=== PATIENT | male | born 1985 | race Caucasian/White ===

== ENCOUNTER 2018-10-08 14:01 | Emergency (ER) | payer SELFPAY ==
[2018-10-08 14:20] VITALS: BP 131/80; PULSE 68; TEMP 98.4; BMI 31.8
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
== END 2018-10-08 15:45 | disposition home or self-care (01) ==
LOC: JERFT 14:01
DX: S39.012A Strain of muscle, fascia and tendon of lower back, initial encounter (principal); S89.82XA Other specified injuries of left lower leg, initial encounter; V59.49XA Driver of pick-up truck or van injured in collision with other motor vehicles in traffic accident, initial encounter; Y92.411 Interstate highway as the place of occurrence of the external cause; Y93.89 Activity, other specified; Y99.8 Other external cause status
CPT/HCPCS: 73562-TC-LT-FY; 99281-25

== ENCOUNTER 2022-04-17 19:21 | Emergency (ER) | payer OTHER ==
[2022-04-17 19:28] VITALS: BP 129/73; PULSE 68; RESP 17; TEMP 98.6; BMI 32.5
[2022-04-17] MEDS ORDERED: LIDOCAINE 5% TOPICAL PATCH TP ONE (20:57)
[2022-04-17] MEDS ORDERED: CYCLOBENZAPRINE HCL 10 MG TABLET (FP) PO ONE (20:57)
[2022-04-17] MEDS ORDERED: KETOROLAC TROMETHAMINE 30 MG/1 ML VIAL IM ONE (20:57)
[2022-04-17] MEDS ORDERED: ACETAMINOPHEN 500 MG TABLET (FP) PO ONE (20:57)
[2022-04-17] MEDS ORDERED: LIDOCAINE 5% TOPICAL PATCH ONE (21:00)
[2022-04-17] MEDS ORDERED: KETOROLAC TROMETHAMINE 30 MG/1 ML VIAL ONE (21:00)
[2022-04-17] MEDS ORDERED: ACETAMINOPHEN 500 MG TABLET (FP) ONE (21:00)
[2022-04-17] MEDS ORDERED: CYCLOBENZAPRINE HCL 10 MG TABLET (FP) ONE (21:00)
[2022-04-17] MEDS ORDERED: LIDOCAINE PATCH REMOVAL MC SCH (22:00)
== END 2022-04-17 21:43 | disposition home or self-care (01) ==
LOC: JERFT 19:21
PROC: 3E0233Z Introduction of Anti-inflammatory into Muscle, Percutaneous Approach (ICD-10-PCS; principal; 2022-04-17)
DX: M54.2 Cervicalgia (principal); M54.6 Pain in thoracic spine; M54.05 Panniculitis affecting regions of neck and back, thoracolumbar region; V43.52XA Car driver injured in collision with other type car in traffic accident, initial encounter
CPT/HCPCS: 99284-25